=== PATIENT | male | born 1980 | race Caucasian/White ===

== ENCOUNTER 2016-05-02 19:22 | Emergency (ER) | payer SELFPAY ==
[2016-05-02 19:58] VITALS: BP 131/65; PULSE 89; TEMP 98.3; BMI 22.2
--- NOTE | 2016-05-02 20:20 | EDPRACDOC ---
- General Information Home Medications: Home Medications Omeprazole [Prilosec] 40 mg PO DAILY #30 capsule. 06/30/15 Ondansetron HCl [Zofran] 4 mg PO Q6H PRN #20 tab 06/30/15 Ibuprofen 600 mg PO TID #20 tablet 07/29/15 Allergies/Adverse Reactions: Allergies Allergy/AdvReac Type Severity Reaction Status Date / Time Penicillins Allergy Nausea only Verified 07/29/15 18:58 - History of Present Illness Onset: MONDAY HPI: PT STATES THAT HE "PINCHED" HIS RIGHT 3RD FINGER BETWEEN WALL AND HOT WATER HEATER, HAS LAC TO FINGER, STATES THAT HE CAN'T WORK BECAUSE EVERYDAY HE BENDS HIS FINGER IT BLEEDS, PT STATES HE NEEDS A WORK NOTE UNTIL IT HEALS. - Location RIGHT 3RD FINGER Mechanism: Reports: Cut - Tetanus Status Last Tetanus: Yes - Pain Pain Severity: None Bleeding: Reports: Controlled Associated Signs & Symptoms: Denies: Loss of Function, Numbness, Weakness ED Past Medical History - History Reviewed Yes Nurses notes reviewed and agree except as marked - Patient Medical History Respiratory History: Reports: Asthma - Social Medical History Smoking Status: Heavy tobacco smoker (5 or more cigarettes/day or daily pipe/ cigar) EDM Review of Systems - Review of Systems Musculoskeletal: No Symptoms Reported Integumentary: Wound Allergic/Immunologic: No Symptoms Reported - Physical Exam Constitutional: Alert (Awake), No apparent distress Oriented to: Time, Person, Place Last recorded Vital Signs: Last Vital Signs Temp 98.3 F 05/02/16 19:57 Pulse 89 05/02/16 19:57 Resp 20 05/02/16 19:57 BP 131/65 05/02/16 19:57 Pulse Ox 96 05/02/16 19:57 Oxygen Pulse Oxygen Saturation 96 O2 Device Room Air Oxygen Flow Rate Fraction of Inspired Oxygen ( FIO2) - HEENT Head: Normal ( normocephalic) - Integumentary Skin: Warm, Dry, Other (2 CM LAC VOLAR ASPECT RIGHT 3RD FINGER, HEALING, NO ACTIVE BLEEDING) - Neurologic Memory Impaired: Normal Motor Function: Normal (Normal tone, Pulses 2+ No cyanosis or edema, FROM) Cranial Nerve: Normal (CN II-X11 intact sensation, strength 5/5) Cerebellar: Normal Mood Description: Normal Perception: Normal - Differential Diagnosis Contusion, Laceration Decision Time to Discharge: 20:21 - Departure Disposition: Home Condition: Stable Final Diagnosis: LAC RIGHT 3RD FINGER, SUPERFICIAL Instructions: Laceration (ED) Education/Counseling Given To: Patient Education/Counseling Given Regarding: Diagnosis, Treatment, Prognosis, Follow Up Referrals: Tato Sethi MD [Staff Physician] - One Week Forms: Excuse Note Additional Instructions: KEEP WOUND CLEAN AND DRY, WASH DAILY WITH SOAP AND WATER, COVER WITH ANTIBIOTIC OINTMENT AND CLEAN BANDAGE, USE TYLENOL OR MOTRIN NEEDED FOR PAIN.
== END 2016-05-02 20:37 | disposition home or self-care (01) ==
LOC: EDMC 19:22
DX: S61.212A Laceration without foreign body of right middle finger without damage to nail, initial encounter (principal); W23.0XXA Caught, crushed, jammed, or pinched between moving objects, initial encounter; Y93.9 Activity, unspecified
CPT/HCPCS: 99282